=== PATIENT | male | born 1950 | race Caucasian/White ===

== ENCOUNTER → 2018-04-06 | Outpatient (CLI) | payer OTHER, MEDICARE ==
[~2018-04-06] VITALS: Ht 175.3 cm; Wt 99.8 kg
[~2018-04-06] MED LIST: ACETAMINOPHEN325 M1 PO; APAP500 PO; ASPIR 8181 MG PO; CALCIUM 600 +1 EAC1 PO; CRESTOR5 MG PO; FISH OIL 1,0001 EAC5; HYDROCODON-ACE1 EAC8 PO; IBUPROFEN 200200 M1 PO; LESCOL40 MG PO; LEVOTHROID50 MCG; MELOXICAM7.5 MG PO; MOBIC7.5 MG PO; NABUMETONE 500500 M1; NEURONTIN 300300 M1 PO; PROTONIX40 M2; SINGULAIR 10 MG10 M1; SINGULAIR 10 MG10 MG PO; SYMBICORT160 MCG/4. INH; TRAMADOL 50 MG50 MG PO; UNICOMPLEX M TA1 TA1 PO; VENTOLIN HFA 1818 GM INH; VITAMIN D1000 UNI1 PO; ZYRTEC10 M5 PO
--- NOTE | ~2018-04-06 | HPC ---
[facility] [address] [address] PAIN MANAGEMENT CONSULTATION Name: AYSHA BLAIR Room #: REG [facility].#: [id number] Admission: 04/06/18 Attend Phys: Carlos Tracey MD Discharge: Date of : 50 Report #: [id number] THIS REPORT FOR: //name// CC: Elliott Tracey DATE OF SERVICE: 04/06/2018 CHIEF COMPLAINT: Low back pain with radiation into the hips and some numbness sensation in the medial aspect of the knee bilaterally. The patient is here today for an epidural injection. He has had injections in the past with good benefit. His previous laminectomy performed acutely after a herniated disk, which appears to be at L2-L3, I do not have those distant records, but the scar is higher in the lumbosacral region than normally expected. Over the course of the last 3 weeks, he has had increasing pain in his low back. It is worse with prolonged sitting. He has gotten some relief from ice and heat. He described the pain first in his right and then the left side of the low back, numbness has been new. Refers to the medial aspect of the knees, which would be consistent with the level of his previous surgeries, I believe. Today, pain is modest at 3, but it has been as high as a 6 or higher. He has no evidence of previous injury. Surgery, however, was performed by Dr. Santillan, I believe about 5-6 years ago. MEDICATIONS: Levothyroxine, Protonix, Crestor, aspirin, calcium, vitamin D, multivitamins, meloxicam 7.5 mg b.i.d., Symbicort, albuterol, Singulair, Zyrtec, fish oil. ALLERGIES: None. PAST MEDICAL HISTORY: Positive for the surgery described. He has had a herniorrhaphy, parathyroidectomy, tonsillectomy, adenoidectomy, hemorrhoidectomy and excision of the proximal left fibula. History of tuberculosis plus treatment with PPD, asthma, hypothyroidism, and arthritis of the hands. SOCIAL HISTORY: Retired physician, , living a good life. He denies use of tobacco and drinks alcohol moderately and socially without any evidence of abuse. Impact pain score is 9/70 showing good management skills. REVIEW OF SYSTEMS: Positive for some mild hearing loss, asthma and hypothyroidism. Numbness and tingling described above. 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 Moves from sitting to standing position, walks without antalgic features. Chest is clear. Cardiac rhythm is regular. Examination of the spine reveals normal alignment. There is a small scar in the mid to upper [facility] [address] [place] [address] PAIN MANAGEMENT CONSULTATION Name: JOHNNIEAYSHAJANET SHAHID Room #: REG [facility]#: [id number] Admission: 04/06/18 Attend Phys: Carlos Tracey MD Discharge: Date of : 50 Report #: [id number] lumbar region from previous surgery. There is good range of motion in flexion, extension, rotation, and [id number] tilt. Mild tenderness across the lumbosacral segment into the buttocks. Straight leg raising is mildly uncomfortable, but not significant. He has some mild numbness sensation along the medial aspect of the knees. Strength is adequate. Deep tendon reflexes are 2+ knees and ankles. IMPRESSION: Post-laminectomy low back pain. Mild radiculopathy. RECOMMENDATIONS: He would like an epidural injection before he leaves town to travel. This has been helpful in the past, I think it is reasonable. I discussed the potential benefits and risks and he would like to proceed. DESCRIPTION OF PROCEDURE: He was taken to fluoroscopic suite, placed prone, skin prepped with ChloraPrep. Skin anesthetized over the L4-L5 interspace. A 20-gauge Tuohy epidural needle was advanced easily in the epidural space in first attempt using loss of resistance technique. No blood or CSF was aspirated. 1 mL of Omnipaque injected. Good spread of dye observed into the epidural space followed by 2 mL of 0.5% lidocaine mixed with 80 mg of triamcinolone. He tolerated the procedure well and was observed for 45 minutes. Pain score 1/10. Follow up as needed. By: [id number] Carlos Tracey MD /nt
[2018-04-06 15:05] VITALS: BP 132/71
== END | disposition home or self-care (01) ==
LOC: PAIN 00:51
DX: M54.16 Radiculopathy, lumbar region (principal); M96.1 Postlaminectomy syndrome, not elsewhere classified; G89.29 Other chronic pain; J45.909 Unspecified asthma, uncomplicated; E03.9 Hypothyroidism, unspecified; M19.041 Primary osteoarthritis, right hand; M19.042 Primary osteoarthritis, left hand; Z79.899 Other long term (current) drug therapy; Z98.890 Other specified postprocedural states; Z79.82 Long term (current) use of aspirin